=== PATIENT | male | born 1955 | race Caucasian/White ===

== ENCOUNTER 2019-04-25 15:20 | Emergency (ER) | payer OTHER ==
[2019-04-25] MEDS ORDERED: Ketorolac 30 MG/ML SDV IM ONE (15:37)
--- NOTE | 2019-04-25 15:37 | EDM.PDOC ---
ED HPI GENERAL MEDICAL PROBLEM - General Chief Complaint: Back Pain or Injury Stated Complaint: L SHOULDER INJURY Time Seen by Provider: 04/25/19 15:27 - History of Present Illness INITIAL COMMENTS - FREE TEXT/NARRATIVE: The patient is an unfortunate 64-year-old male who presents emergency Department today with complaint of fall. Patient reports she is in his normal state of health approximately one hour prior to arrival when he was pulling a piece of furniture out of the back of a semitruck and slipped and fell out of the back of his truck approximately 4 feet onto his left shoulder and chest pain to his left shoulder and low back. Patient reports that this pain is worse with range of motion improves with rest does not alleviate. Patient holds his shoulder in adduction is some neurovascular is intact. Patient does have pain to his L-spine at the 45 level paraspinous muscle tenderness does not radiate to his legs. No loss of bowel or bladder function no saddle anesthesia. - Related Data Allergies Allergy/AdvReac Type Severity Reaction Status Date / Time No Known Allergies Allergy Verified 04/25/19 15:33 Home Meds: Home Meds Ibuprofen 800 mg PO TID #15 tablet 04/25/19 [Rx] ED ROS GENERAL - Review of Systems Review Of Systems: See Below Constitutional: Reports: No Symptoms HEENT: Reports: No Symptoms Respiratory: Reports: No Symptoms Cardiovascular: Reports: No Symptoms Endocrine: Reports: No Symptoms GI/Abdominal: Reports: No Symptoms : Reports: No Symptoms Musculoskeletal: Reports: Shoulder Pain, Back Pain Skin: Reports: No Symptoms Neurological: Reports: No Symptoms Psychiatric: Reports: No Symptoms Hematologic/Lymphatic: Reports: No Symptoms Immunologic: Reports: No Symptoms ED EXAM,LOWER BACK PAIN/INJURY - Physical Exam Exam: See Below Exam Limited By: No Limitations General Appearance: Alert, WD/WN, Moderate Distress Head: Atraumatic, Normocephalic Neck: Normal Inspection, Supple, Non-Tender, Full Range of Motion Respiratory/Chest: No Respiratory Distress, Lungs Clear, Normal Breath Sounds, No Accessory Muscle Use, Chest Non-Tender Cardiovascular: Normal Peripheral Pulses, Regular Rate, Rhythm, No Edema, No Gallop, No JVD, No Murmur, No Rub GI/Abdominal: Normal Bowel Sounds, Soft, Non-Tender, No Organomegaly, No Distention, No Abnormal Bruit, No Mass (Male) Exam: Deferred Rectal (Males) Exam: Deferred Back Exam: Other (Paraspinous muscle tenderness L4-L5 level bilaterally no radiation, that of leg lift bilaterally, DTRs intact bilaterally, no spasm noted , no CVA tenderness) Extremities: Other (Tenderness to the left shoulder, no deformity noted, distal neurovascular is intact, arm is held in abduction with elbow at 90 as position of comfort) Neurological: Alert, Normal Mood/Affect, Normal Dorsiflexion, CN II-XII Intact, Normal Plantar Flexion, Normal Gait, Normal Reflexes, No Motor/Sensory Deficits , Oriented x 3 Course - Vital Signs Last Recorded V/S: Last Vital Signs Temp 98.6 F 04/25/19 15:29 Pulse 87 04/25/19 15:29 Resp 18 04/25/19 15:29 BP 136/91 H 04/25/19 15:29 Pulse Ox 95 04/25/19 15:29 - Orders/Labs/Meds Orders: Active Orders 24 hr Category Date Time Status Lumbar Spine 2 or 3V [CR] Stat Exams 04/25/19 15:33 Taken Shoulder Comp Lt [CR] Stat Exams 04/25/19 15:33 Taken Durable Medical Equipment for Discharge [DME for Oth 04/25/19 16:24 Ordered Discharge] [COMM] Stat Meds: Medications Discontinued Medications Generic Name Dose Route Start Last Admin Trade Name Levy PRN Reason Stop Dose Admin Ketorolac Tromethamine 30 mg 04/25/19 15:37 04/25/19 15:48 Toradol IM 04/25/19 15:38 30 mg ONETIME ONE Administration - Re-Assessments/Exams Free Text/Narrative Re-Assessment/Exam: 04/25/19 15:54 L-spine interpreted by DOMINICK, L shoulder interpret by me TAN Departure - Departure Time of Disposition: 16:28 Disposition: Home, Self-Care 01 Condition: Fair Clinical Impression: Sprain of left shoulder Qualifiers: Encounter type: initial encounter Shoulder sprain type: other part of shoulder region Qualified Code(s): S43.492A - Other sprain of left shoulder joint, initial encounter Lumbar strain Qualifiers: Encounter type: initial encounter Qualified Code(s): S39.012A - Strain of muscle, fascia and tendon of lower back, initial encounter - Discharge Information *PRESCRIPTION DRUG MONITORING PROGRAM REVIEWED*: Yes *COPY OF PRESCRIPTION DRUG MONITORING REPORT IN PATIENT PANCHO: No Prescriptions: Ibuprofen 800 mg PO TID #15 tablet Instructions: Low Back Sprain Referrals: PCP,None [Ordering Only Provider] - Forms: ED Department Discharge Additional Instructions: Home, rest, use sling for 3 days, out of sling 30 minutes out of every hour active range of motion, heating pad to low back 20 minutes at a time 3-4 times a day, avoid bending at the waist, return as needed for worsening condition - My Orders Last 24 Hours: My Active Orders 04/25/19 15:33 Lumbar Spine 2 or 3V [CR] Stat Shoulder Comp Lt [CR] Stat 04/25/19 16:24 Durable Medical Equipment for Discharge [DME for Discharge] [COMM] Stat - Assessment/Plan Last 24 Hours: My Active Orders 04/25/19 15:33 Lumbar Spine 2 or 3V [CR] Stat Shoulder Comp Lt [CR] Stat 04/25/19 16:24 Durable Medical Equipment for Discharge [DME for Discharge] [COMM] Stat
--- NOTE | 2019-04-26 07:22 | CR ---
Left shoulder: Three views of the left shoulder were obtained. Comparison: No previous study. Acromioclavicular joint and glenohumeral joints appear within normal limits. No acute fracture, dislocation or other bony abnormality is appreciated. Impression: 1. No abnormality is appreciated on three-view left shoulder study. Diagnostic code #1
--- NOTE | 2019-04-26 07:45 | CR ---
Lumbar spine: AP, lateral and cone down lateral views centered to the lumbosacral junction were obtained. No previous lumbar spine imaging is available. Vertebral body heights are maintained. Scattered endplate osteophytes are seen. Disc spaces are fairly well-preserved. Minimal scoliosis is noted. Pedicles are intact. Visualized transverse and spinous processes are intact. Sacroiliac joints are within normal limits. Impression: 1. Mild diffuse degenerative change with minimal scoliosis. Diagnostic code #2
== END 2019-04-25 16:39 | disposition home or self-care (01) ==
LOC: JD.ED 15:20
DX: S39.012A Strain of muscle, fascia and tendon of lower back, initial encounter (principal); S43.492A Other sprain of left shoulder joint, initial encounter; Z79.899 Other long term (current) drug therapy; V84.4XXA Person injured while boarding or alighting from special agricultural vehicle, initial encounter
CPT/HCPCS: 72100; 73030; 96372; 99283; J1885